=== PATIENT | female | born 1975 | race Asian ===

== ENCOUNTER 2020-11-17 22:05 | Emergency (ER) | payer OTHER ==
[~2020-11-17] VITALS: Ht 165.1 cm; Wt 80.7 kg
[2020-11-17] MEDS ORDERED: ACETAMINOPHEN ES 500 MG TABLET PO ONE (22:30)
[2020-11-17] MEDS ORDERED: ACETAMINOPHEN ES 500 MG TABLET ONE (22:33)
--- NOTE | 2020-11-17 23:50 | NUR ---
PATIENT WAS MSE BY DR VICTOR IN ROOM 05B. PATIENT A & O X4..
[2020-11-18] MEDS ORDERED: HYDR-4209 PO (00:28)
--- NOTE | 2020-11-18 01:30 | NUR ---
DR VICTOR MADE AWARE OF BP 162/100
[2020-11-18 01:50] VITALS: BP 162/90
--- NOTE | 2020-11-18 01:50 | NUR ---
Patient discharged to home in stable condition. Written and verbal after care instructions given. Patient verbalizes understanding of instructions. Stressed follow up or return to ER for worsening s/s.
[2020-11-18] MEDS ORDERED: IBUPROFEN 600 MG TABLET ONE (01:55)
[2020-11-18] MEDS ORDERED: IBUPROFEN 600 MG TABLET PO ONE (02:00)
== END 2020-11-18 01:55 | disposition home or self-care (01) ==
LOC: ER 22:20
DX: S00.83XA Contusion of other part of head, initial encounter (principal); S70.01XA Contusion of right hip, initial encounter; W01.0XXA Fall on same level from slipping, tripping and stumbling without subsequent striking against object, initial encounter; Y92.239 Unspecified place in hospital as the place of occurrence of the external cause; Y99.0 Civilian activity done for income or pay; R03.0 Elevated blood-pressure reading, without diagnosis of hypertension; M79.602 Pain in left arm; M79.601 Pain in right arm
CPT/HCPCS: 72170; 73060; 73090; 73700; A4663; A9150

== ENCOUNTER 2020-11-26 18:48 | Emergency (ER) | payer OTHER ==
[~2020-11-26] VITALS: Ht 165.1 cm; Wt 81.6 kg
[~2020-11-26 18:48] MED LIST: HYDR-4209 PO
--- NOTE | 2020-11-26 19:04 | NUR ---
Patient discharged to home in stable condition. Written and verbal after care instructions given. Patient verbalizes understanding of instructions. Stressed follow up or return to ER for worsening s/s. Patient out of ER with steady gait, no acute signs of distress, VSS, all belongings taken.
[2020-11-26] MEDS ORDERED: HYDR-3980 PO (19:19)
[2020-11-26 20:16] VITALS: BP 142/79
== END 2020-11-26 20:16 | disposition home or self-care (01) ==
LOC: ER 18:52
DX: S70.01XA Contusion of right hip, initial encounter (principal); S90.02XA Contusion of left ankle, initial encounter; S50.12XA Contusion of left forearm, initial encounter; W01.0XXA Fall on same level from slipping, tripping and stumbling without subsequent striking against object, initial encounter; Y92.89 Other specified places as the place of occurrence of the external cause; Y99.0 Civilian activity done for income or pay
CPT/HCPCS: A4663

== ENCOUNTER → 2020-12-05 | Emergency (ER) | payer OTHER ==
[~2020-12-05] MED LIST changes: +HYDR-3980 PO
== END | disposition left against medical advice (07) ==
LOC: ER 14:01
DX: Z53.21 Procedure and treatment not carried out due to patient leaving prior to being seen by health care provider (principal)

== ENCOUNTER 2022-07-30 07:13 | Outpatient (CLI) | payer BC | END 2022-07-30 23:59 | disposition home or self-care (01) | LOC: RAD 07:13 | PROVIDERS: ATTEND Family Medicine | DX: M79.642 Pain in left hand (principal) | CPT/HCPCS: 73130 ==